=== PATIENT | female | born 1995 | race Caucasian/White ===

== ENCOUNTER 2017-02-10 05:21 | Emergency (ER) | payer MEDICAID ==
[~2017-02-10] VITALS: Ht 160 cm; Wt 68.0 kg
[2017-02-10 05:21] VITALS: BP_SYST 122
[2017-02-10] MEDS ORDERED: IPRATROPIUM/ALBUTEROL SULFATE 3 ML AMPUL.NEB INH ONE (06:15)
[2017-02-10] MEDS ORDERED: AMOXICILLIN 500 MG CAPSULE PO ONE (06:30)
[2017-02-10] MEDS ORDERED: methylPREDNISolone SOD SUCC/PF 62.5 MG/ML VIAL IM ONE (06:30)
[2017-02-10 07:12] VITALS: BP_SYST 122
== END 2017-02-10 07:11 | disposition home or self-care (01) ==
LOC: SED 05:21
DX: J20.9 Acute bronchitis, unspecified (principal); R03.0 Elevated blood-pressure reading, without diagnosis of hypertension; J45.909 Unspecified asthma, uncomplicated
CPT/HCPCS: 71010; 94640; 96372; 99283; J2930

== ENCOUNTER 2017-05-27 20:56 | Emergency (ER) | payer MEDICAID ==
[~2017-05-27] VITALS: Ht 160 cm; Wt 74.8 kg
[2017-05-27 21:10] VITALS: BP_SYST 123
[2017-05-27] MEDS ORDERED: DEXAMETHASONE SOD PHOSPHATE 10 MG/ML VIAL IVP ONE (21:30)
[2017-05-27] MEDS ORDERED: NACL 0.9% 1,000 ML IV ONE (21:30)
[2017-05-27] MEDS ORDERED: IPRATROPIUM/ALBUTEROL SULFATE 3 ML AMPUL.NEB INH ONE ×2 (21:30)
[2017-05-27 22:19] VITALS: BP_SYST 122
== END 2017-05-27 22:19 | disposition home or self-care (01) ==
LOC: SED 20:56
DX: J45.909 Unspecified asthma, uncomplicated (principal); H60.92 Unspecified otitis externa, left ear; B35.4 Tinea corporis; J02.9 Acute pharyngitis, unspecified
CPT/HCPCS: 81025; 94640; 96374; 99284; J1100; J7030